=== PATIENT | male | born 1975 | race Caucasian/White ===

== ENCOUNTER 2016-11-04 21:11 | Inpatient (IN) | payer OTHER ==
[~2016-11-04] VITALS: Ht 165.1 cm; Wt 78.5 kg
[2016-11-04] MEDS ORDERED: SOD CHLORIDE 0.9% 500 ML IV STA (22:13)
[2016-11-04 22:28] LABS: ADD SCAN DIFF NO
[2016-11-04 22:30] LABS: BASOPHILS % 0.2 % (0.0-2.0); EOSINOPHILS % 0.4 % (0.0-7.0); HEMATOCRIT 50.9 % (42.0-52.0); HEMOGLOBIN 16.1 g/dl (14.0-18.0); LYMPHOCYTES # 2.5 10^3/ul (0.8-2.9); LYMPHOCYTES % 29.8 % (15.0-51.0); MEAN CORPUSCULAR HGB CONC 31.6 g/dl (32.0-37.0); MEAN PLATELET VOLUME 10.5 fl (7.4-10.4); MONOCYTE # 0.7 10^3/ul (0.3-0.9); MONOCYTES % 8.2 % (0.0-11.0); NEUTROPHIL # 5.1 10^3/ul (1.6-7.5); NEUTROPHILS % 61.3 % (39.0-77.0); PLATELET COUNT 229 10^3/UL (140-415); RED BLOOD COUNT 6.44 10^6/ul (4.70-6.10); RED CELL DISTRIBUTION WIDTH 13.6 % (11.5-14.5); WHITE BLOOD COUNT 8.3 10^3/ul (4.8-10.8)
[2016-11-04 22:57] LABS: INR 0.94; PROTIME 12.6 Sec (12.2-14.2)
[2016-11-04 22:58] LABS: ALANINE AMINOTRANSFERASE 43 IU/L (13-69); ALBUMIN 5.2 g/dl (3.3-4.9); ALBUMIN/GLOBULIN RATIO 1.62; ALKALINE PHOSPHATASE 86 IU/L (42-121); ANION GAP 13 (8-16); ASPARTATE AMINO TRANSFERASE 35 IU/L (15-46); BILIRUBIN,INDIRECT 0.3 mg/dl (0-1.1); BILIRUBIN,TOTAL 0.3 mg/dl (0.2-1.3); BLOOD UREA NITROGEN 17 mg/dl (7-20); CALCIUM 9.2 mg/dl (8.4-10.2); CARBON DIOXIDE 29 mmol/L (21-31); CHLORIDE 103 mmol/L (97-110); CREATININE 0.88 mg/dl (0.61-1.24); GLUCOSE 94 mg/dl (70-220); PARTIAL THROMBOPLASTIN TIME 27.7 Sec (25.0-35.0); POTASSIUM 3.3 mmol/L (3.5-5.1); SODIUM 142 mmol/L (135-144); TOTAL PROTEIN 8.4 g/dl (6.1-8.1)
[2016-11-04 23:14] LABS: B-TYPE NATRIURETIC PEPTIDE < 11 PG/ML (0-125); TROPONIN-I < 0.012 ng/ml (0.00-0.12)
--- NOTE | 2016-11-04 23:19 | RADRPT ---
PROCEDURE: Chest x-ray CLINICAL INDICATION: Chest pain TECHNIQUE: Chest single view COMPARISON: None FINDINGS: The heart is normal in size. The pulmonary vessels are normal in caliber. The lungs are clear. Th e costophrenic angles are sharp. The visualized bony thorax is unremarkable. IMPRESSION: No acute cardiopulmonary disease. RPTAT: HH .Junior Pineda MD, Date Time Electronically viewed and signed by .Junior Pineda MD, MD on 11/04/2016 23:19 .W/
[2016-11-05] VITALS (13 sets, daily range): BP systolic 111–140; BP diastolic 68–84; PULSE 52–71; RESP 17–20; TEMP 96.9; Ht 165.1 cm; Wt 78.5 kg
--- NOTE | 2016-11-05 00:33 | ERA ---
ER Documentation Chief Complaint Date/Time DATE: 11/05/16 TIME: 00:32 Chief Complaint INTERMITTENT CP RADIATING TO LT ARM THAT STARTED SUDDENLY 2 HRS AGO. HPI This is a very pleasant 41-year-old male comes in complaining of intermittent moderate chest pain rating to left, started 2 hours ago. Pain is mild to moderate intensity and pressure-like with no exacerbating limiting factors radiates to the left arm. No shortness of breath. No diaphoresis. No other current complaints. Patient with no documented cardiac history. No family history. ROS All systems reviewed and are negative except as per history of present illness. Allergies Allergies: Coded Allergies: No Known Allergy (Unverified , 11/04/16) PMhx/Soc Medical and Surgical Hx: pt denies Medical Hx, pt denies Surgical Hx Hx Alcohol Use: No Hx Substance Use: No Hx Tobacco Use: No Smoking Status: Never smoker Physical Exam Vitals Vital Signs Date Time Temp Pulse Resp B/P Pulse Ox O2 Delivery O2 Flow Rate FiO2 11/04/16 23:00 74 12 127/86 97 Room Air 11/04/16 21:55 96.9 93 18 146/105 98 Room Air 11/04/16 21:13 96.9 102 18 168/103 97 Physical Exam Const: [] Head: Atraumatic Eyes: Normal Conjunctiva ENT: Normal External Ears, Nose and Mouth. Neck: Full range of motion..~ No meningismus. Resp: Clear to auscultation bilaterally Cardio: Regular rate and rhythm, no murmurs Abd: Soft, non tender, non distended. Normal bowel sounds Skin: No petechiae or rashes Back: No midline or flank tenderness Ext: No cyanosis, or edema Neur: Awake and alert Psych: Normal Mood and Affect Result Diagram: 11/04/16219911/04/162199 Results 24 hrs Laboratory Tests Test 11/04/16 22:00 White Blood Count 8.310^3/ul Red Blood Count 6.4410^6/ul Hemoglobin 16.1g/dl Hematocrit 50.9% Mean Corpuscular Volume 79.0fl Mean Corpuscular Hemoglobin 25.0pg Mean Corpuscular Hemoglobin Concent 31.6g/dl Red Cell Distribution Width 13.6% Platelet Count 30446^3/UL Mean Platelet Volume 10.5fl Neutrophils % 61.3% Lymphocytes % 29.8% Monocytes % 8.2% Eosinophils % 0.4% Basophils % 0.2% Nucleated Red Blood Cells % 0.0/100WBC Neutrophils # 5.110^3/ul Lymphocytes # 2.510^3/ul Monocytes # 0.710^3/ul Eosinophils # 0.010^3/ul Basophils # 0.010^3/ul Nucleated Red Blood Cells # 0.010^3/ul Prothrombin Time 12.6Sec Prothrombin Time Ratio 1.0 INR International Normalized Ratio 0.94 Activated Partial Thromboplast Time 27.7Sec Sodium Level 142mmol/L Potassium Level 3.3mmol/L Chloride Level 103mmol/L Carbon Dioxide Level 29mmol/L Anion Gap 13 Blood Urea Nitrogen 17mg/dl Creatinine 0.88mg/dl Glucose Level 94mg/dl Calcium Level 9.2mg/dl Total Bilirubin 0.3mg/dl Direct Bilirubin 0.00mg/dl Indirect Bilirubin 0.3mg/dl Aspartate Amino Transf (AST/SGOT) 35IU/L Alanine Aminotransferase (ALT/SGPT) 43IU/L Alkaline Phosphatase 86IU/L Troponin I < 0.012ng/ml B-Type Natriuretic Peptide < 11PG/ML Total Protein 8.4g/dl Albumin 5.2g/dl Globulin 3.20g/dl Albumin/Globulin Ratio 1.62 Current Medications Medications (Trade) Dose Ordered Sig/Niraj Route PRN Reason Start Time Stop Time Status Last Admin Dose Admin Sodium Chloride (NS) 500 ml @ 500 mls/hr Q1H STAT IV 11/04/16 22:13 11/04/16 23:12 DC 11/04/16 22:58 Procedures/MDM EKG: Rate/Rhythm: Normal Sinus Rhythm QRS, ST, T-waves: No changes consistent w/ acute ischemia Impression: No evidence of ischemia or arrhythmia Chest X-ray 1V Interpreted by me: Soft Tissue: No acute abnormalities Bones: No acute abnormalities Mediastinum/Cardiac Silhouette/Lungs: No acute abnormalities Patient's symptoms are concerning for cardiac cause will require inpatient workup and continuous monitoring. Further w/u for ischemia, arrhythmia, PE or dissection will be deferred to the inpatient team. Accepting Care Team: Current data and ongoing care discussed. Time: 12:30 AM Primary Provider: Ambrosio Consulting: [[email or web address]] Outstanding Data: none Departure Diagnosis: Primary Impression: Chest pain Qualified Code: I20.0 - Unstable angina pectoris Condition: Serious LADAN STEVENS Nov 05, 2016 00:33
[2016-11-05] MEDS ORDERED: morphine 2 MG INJ IV PRN (03:30)
[2016-11-05] MEDS ORDERED: ACETAMINOPHEN 325 MG TAB PO PRN (03:30)
[2016-11-05] MEDS: ASPIRIN 325 MG TAB PO SCH (08:28)
[2016-11-05] MEDS: METOPROLOL 25 MG TAB PO SCH ×2 (08:29→21:35)
[2016-11-05 08:30] LABS: CHOL/HDL RATIO 4.3 RATIO; CHOLESTEROL 196 mg/dl (100-200); HDL CHOLESTEROL 45 mg/dl (27-67); TRIGLYCERIDES 76 mg/dl (0-149)
[2016-11-05 08:44] LABS: TROPONIN-I < 0.012 ng/ml (0.00-0.12)
[2016-11-05] MEDS ORDERED: POTASSIUM CHLORIDE 20 MEQ POWDER FOR ORAL SOLN PO ONE (13:00)
--- NOTE | 2016-11-05 13:50 | HP ---
DATE OF ADMISSION: 11/05/2016 HISTORY OF PRESENT ILLNESS: The patient is a 41-year-old gentleman originally from [place]. He denie s any prior medical and surgical history. The patient works in construction. The patient stated th at she started to experience intermittent chest pain during the night and in the morning for the las t 6 months. The pain usually goes away by itself. The patient stated that he experienced pressure- like symptoms with no exacerbating or relieving factors last night, which started suddenly and there was radiation to the left arm and patient presented to the emergency room. The patient denies any shortness of breath, denies fever, chills, denies nausea, vomiting. In the emergency room, the gio ent's troponin was negative. The patient underwent a chest x-ray which does not reveal any acute ca rdiopulmonary disease. Patient was getting morphine, 325 mg of aspirin, metoprolol and admitted for further evaluation and management on telemetry floor. Patient also noted to have blood pressure 1 68/103 on admission which is currently stable. PAST MEDICAL HISTORY: The patient denies having any past medical history. PAST SURGICAL HISTORY: Patient denies any surgeries in the past. SOCIAL HISTORY: The patient works in construction, patient denies any tobacco use, denies any illic it drug use, denies any alcohol use. FAMILY HISTORY: Patient's father of heart attack at the age of 71. The patient's mother with a history of diabetes. ALLERGIES: NO KNOWN ALLERGIES. HOME MEDICATIONS: No active scripts. REVIEW OF SYSTEMS: A 12-point review of systems is negative unless mentioned in the HPI. PHYSICAL ASSESSMENT: GENERAL: Well-developed, well-nourished male who currently is awake, alert, in no acute distress. VITAL SIGNS: Temperature 97.8, pulse 63, blood pressure 119/68, respiratory rate 18, oxygen saturat ion 97% on room air. HEENT: Head is atraumatic, normocephalic. Pupils equal, round, reactive to light and accommodation . Oral mucosa is pink and moist. NECK: Supple, no cervical lymphadenopathy, no thyromegaly. CHEST: Lungs clear bilaterally. There is no rhonchi, wheezes, rales noted. CARDIOVASCULAR: Normal S1 and S2. No murmurs, gallops, clicks, rubs noted. ABDOMEN: Flat, soft, nondistended, nontender. Bowel sounds present. There is No guarding, no rebo und tenderness. EXTREMITIES: No edema, clubbing, cyanosis. Pulses equal bilaterally 2+. SKIN: No rashes or petechiae noted. NEUROLOGIC: Patient is awake, alert, oriented x4 with no focal deficits noted. LABORATORY DATA: On admission, CBC: White blood cells 8.3, hemoglobin 16.1, hematocrit 50.9, plate lets 229. Chemistry: Sodium 142, potassium 3.3, chloride 103, carbon dioxide 29, anion gap 15, ___ __ 0.88, glucose 94, AST 35. ASSESSMENT AND PLAN: 1. Chest pain. I will rule out acute coronary syndrome. We will obtain cardiac enzymes q.8.h. aparna es 3. We will obtain a 2D echo to evaluate ejection fraction. Will see patient in cardiology consu ltation. 2. Patient most likely has primary hypertension. Continue metoprolol. 3. A 12-lead EKG with normal sinus rhythm with no changes consistent with ischemia per ER notes. 4. Will obtain a TSH and lipid panel. 5. The patient has mild hypokalemia will replace potassium. BMP and CBC tomorrow. Continue patien t on aspirin and morphine p.r.n. for pain. Further recommendations based on clinical course. Plan of care discussed with Dr. Lares. Dictated By: AIXA CALVILLO SERVICE CASHIER for TAMI LARES MD SR/NTS Conf#: [id number] DID#: [id number]
[2016-11-05] MEDS ORDERED: NITROGLYCERIN (SL) 0.4 MG TAB SL PRN (20:00)
--- NOTE | 2016-11-05 20:04 | RADRPT ---
Echocardiogram Report Patient Name: ANDREW JON Gender: Male Date: 1975 Study Date: 05-Nov-2016 Social Service Manager: Miriam Arceo [facility] Location: 5552 Ref. Physician: TAMI MARQUES Quality: Good Procedures: Transthoracic echocardiogram with complete 2D, M-Mode, and doppler examination. Indications: Chest Pain. 2D/M Mode Doppler Measurement Value Normal Ranges Measurement Value Normal Ranges LVIDd 2D 4.3 3.5 - 5.6 cm AV Peak Keshav 1.4 m/sec LVIDs 2D 2.9 2.1 - 4.1 cm AV Peak PG 8.0 mmHg FS 2D 33.4 % LVOT Peak Kesahv 1.2 m/sec LVPWd 2D 0.9 0.6 - 1.1 cm LVOT Peak PG 6.0 mmHg IVSd 2D 0.9 0.6 - 1.1 cm MV E Peak Keshav 0.6 m/sec IVS/LVPW 2D 1.0 MV A Peak Keshav 0.5 m/sec AoR Diam 2D 3.0 2.0 - 3.7 cm MV E/A 1.3 LA/Ao 2D 1 0 - 1 MV Decel Time 218 msec EDV 2D 80.1 cm3 MV E/A 1.3 ESV 2D 23.6 cm3 TR Peak Keshav 2.3 m/sec LA Dimen 2D 2.7 2.3 - 4.0 cm TR Peak PG 21.0 mmHg RVSP 24.0 mmHg Findings Left Ventricle: Lower limits of normal systolic function. Normal left ventricular cavity size. Normal left ventricular wall thickness. Ejection fraction is visually estimated at 5055 %. Tissue Doppler/Mitral Doppler indices are within normal limits. Right Ventricle: Normal right ventricular size. Normal right ventricular systolic function. Left Atrium: The left atrium is normal in size. Right Atrium: The right atrium is normal in size. Mitral Valve: Mitral valve leaflets appear mildly thickened. Mild mitral annular calcification. Trace mitral regurgitation. Aortic Valve: Normal appearance of the aortic valve. No significant aortic stenosis or insufficiency. Tricuspid Valve: Normal appearance of the tricuspid valve. Estimated peak PA systolic pressure 24 mmHg. There is trace tricuspid regurgitation. Pulmonic Valve: Pulmonic valve not well visualized. Pericardium: Normal pericardium with no significant pericardial effusion. Aorta: Normal aortic root. IVC: Normal size and normal respiratory collapse consistent with normal right atrial pressure. Conclusions 1.Lower limits of normal systolic function. Normal left ventricular cavity size. Normal left ventricular wall thickness. Ejection fraction is visually estimated at 50-55 %. Tissue Doppler/Mitral Doppler indices are within normal limits. 2.Mitral valve leaflets appear mildly thickened. Mild mitral annular calcification. Trace mitral regurgitation. 3.Normal appearance of the tricuspid valve. Estimated peak PA systolic pressure 24 mmHg. There is trace tricuspid regurgitation. Electronically Signed By: Gio Palumbo 05-Nov-2016 20:03:34 -0700 Patient Name: ANDREW JON Study Date: 05-Nov-2016 [id number]
--- NOTE | 2016-11-05 20:31 | CONS ---
DATE OF ADMISSION: 11/05/2016 DATE OF CONSULTATION: 11/05/2016 REASON FOR CONSULTATION: Chest pain, assess for acute coronary syndrome. REQUESTING PHYSICIAN: Tami Marques MD HISTORY OF PRESENT ILLNESS: Mr. Lowe is a 41-year-old male without significant past medical histo ry who initially presented with complaints of substernal chest pain of onset on the day of admission and, prior to that, some months prior. The patient states he had chest pain described as a stabbin g sensation on the left side of his chest with radiation to his left arm and then additionally as a pressure-like component thereafter. Additionally, the pain also radiates to the patient's left leg. The patient states the chest pain comes on at rest, not necessarily related to exertional activiti es. Upon arrival in the emergency department, temperature 96.9, blood pressure markedly elevated at 168/103, pulse 102, respiration 18, saturating 97%. The patient's labs revealed a white count of 8 .3, hemoglobin 6.1, platelet count 229. Sodium 142, potassium 3.3, creatinine 0.88, BUN 17. Tropon in negative. BNP less 11. INR 0.94. The patient underwent a chest x-ray revealing no acute cardio pulmonary abnormalities. The patient's electrocardiogram revealed normal sinus rhythm with a rate o f 89, normal axis, normal intervals, nonspecific ST-T abnormalities. The patient was subsequently a dmitted to the floor and, since admit to floor, continues to complain of chest pain. The patient tomas s had a total of 3 negative troponins, ruling him out for acute myocardial infarction. PAST MEDICAL HISTORY: As above in HPI. MEDICATIONS CURRENTLY IN HOSPITAL: 1. Lipitor 10 mg at bedtime. 2. Metoprolol 25 mg p.o. b.i.d. 3. Aspirin 325 mg daily. 4. Tylenol p.r.n. 5. Morphine p.r.n. ALLERGIES: NO KNOWN DRUG ALLERGIES. SOCIAL HISTORY: No tobacco, ETOH, or illicit drug use. FAMILY HISTORY: Negative for sudden cardiac or early CAD. REVIEW OF SYSTEMS: As above in HPI. CONSTITUTIONAL: No fevers, chills. PULMONARY: No current shortness of breath. CARDIOVASCULAR: Positive chest pain. GASTROINTESTINAL: No vomiting. GENITOURINARY: No hematuria. MUSCULOSKELETAL: Degenerative joint disease. PSYCHIATRIC: The patient denies depression. NEUROLOGIC: No documented history of CVA. PHYSICAL EXAMINATION: VITAL SIGNS: Temperature 98.1, blood pressure 120/73, pulse 58, respirations 17, saturating 98%. GENERAL: The patient is alert, awake, complaining of intermittent chest pain. NECK: JVP approximately 8 cm of water. CHEST: Fair air movement throughout. HEART: Regular rate and rhythm. Normal S1, S2. I/ systolic murmur, nondisplaced PMI. ABDOMEN: Positive bowel sounds, soft. EXTREMITIES: No edema, 1+ pulses bilaterally posterior tibial. LABORATORIES: As above in HPI. Since admit patient had a total of 3 negative troponins, ruling him out for acute myocardial infarction. IMAGING STUDIES: As above in HPI. No further imaging studies for my review at this time. ELECTROCARDIOGRAM: As above in HPI with repeat EKGs revealing sinus bradycardia, rate of 57, normal axis, normal intervals with nonspecific ST-T abnormalities. IMPRESSION: 1. Chest pain, assess for acute coronary syndrome with some atypical features, but ongoing symptoms of chest pain. 2. Abnormal electrocardiogram, assess for acute coronary syndrome. 3. Bradycardia, borderline, likely secondary to beta denisse. RECOMMENDATIONS: 1. At this time, will maintain patient on telemetry monitoring to follow rhythm and rate control cl osely. 2. Continue the patient's aspirin for prophylaxis against cardiovascular events. 3. Continue the patient's current statin at this time. 4. Continue the patient's low dose beta denisse as tolerated. 5. Will give patient sublingual nitroglycerin to assess the patient's chest pain responsiveness and , as patient continues to complain of chest pain, we will consider stress testing this patient to ru le out the possibility of ischemia lending to symptoms of chest pain and subsequent admit to the [facility]. Thank you for allowing me to take part in the care of this patient. I will continue to follow along very closely with you. Further recommendations will be made as the patient progresses through his inpatient hospital clinical course. Dictated By: CARMEN FRANKLIN/KATIA Conf#: [id number] DID#: [id number] CC: TAMI MARQUES MD;*EndCC*
[2016-11-05] MEDS: ATORVASTATIN 10 MG TAB PO SCH (21:35)
[2016-11-06] VITALS (12 sets, daily range): BP systolic 107–131; BP diastolic 64–82; PULSE 50–75; RESP 16–20
[2016-11-06 08:25] LABS: ADD SCAN DIFF NO
[2016-11-06 08:28] LABS: BASOPHILS % 0.3 % (0.0-2.0); EOSINOPHILS # 0.1 10^3/ul (0.0-0.5); EOSINOPHILS % 0.8 % (0.0-7.0); HEMOGLOBIN 16.4 g/dl (14.0-18.0); LYMPHOCYTES # 2.5 10^3/ul (0.8-2.9); LYMPHOCYTES % 35.7 % (15.0-51.0); MEAN CORPUSCULAR HEMOGLOBIN 25.4 pg (29.0-33.0); MEAN CORPUSCULAR HGB CONC 31.5 g/dl (32.0-37.0); MEAN CORPUSCULAR VOLUME 80.5 fl (82.0-101.0); MEAN PLATELET VOLUME 10.4 fl (7.4-10.4); MONOCYTE # 0.5 10^3/ul (0.3-0.9); MONOCYTES % 7.6 % (0.0-11.0); NEUTROPHIL # 3.9 10^3/ul (1.6-7.5); NEUTROPHILS % 55.5 % (39.0-77.0); PLATELET COUNT 257 10^3/UL (140-415); RED BLOOD COUNT 6.46 10^6/ul (4.70-6.10); RED CELL DISTRIBUTION WIDTH 13.2 % (11.5-14.5); WHITE BLOOD COUNT 7.1 10^3/ul (4.8-10.8)
--- NOTE | 2016-11-06 09:26 | CONS ---
Date/Time of Note Date/Time of Note DATE: 11/06/16 TIME: 09:25 Assessment/Plan Assessment/Plan Additional Assessment/Plan 1. Chest pain, assess for acute coronary syndrome with some atypical features, but ongoing symptoms of chest pain- STRESS TEST TODAY 2. Abnormal electrocardiogram, assess for acute coronary syndrome- R/o GA. 3. Bradycardia, borderline, likely secondary to beta denisse - H/R controlled 4. Anxiety - might be contributing ? Consultation Date/Type/Reason Admit Date/Time Nov 05, 2016 at 00:25 Initial Consult Date 24 HR Interval Summary Free Text/Dictation NO chest pain now - STRESS TEST today ROS: No fever, no chills, no nausea, no vomiting, no diarrhea/constipation No recent weight changes No chest pain, no PND, no orthopnea No dizziness, blurred vision No thirst, no heat or cold intolerance Exam/Review of Systems Vital Signs Vitals Vital Signs Date Time Temp Pulse Resp B/P Pulse Ox O2 Delivery O2 Flow Rate FiO2 11/06/16 08:59 59 11/06/16 07:39 97.2 20 119/82 99 11/05/16 01:41 Room Air Intake and Output 11/05/16 11/05/16 11/06/16 15:00 23:00 07:00 Intake Total 1000 ml 800 ml Output Total 3 ml Balance 997 ml 800 ml Exam General: WN/WD/NAD, AOx 3 HEENT: Unicetric/atraumatic/EOMI (follows commands) NECK: JVD elevated, no thyromegaly Lymph: no lymphadenopathy HEART: regular with no S3, II/ systolic murmur at apex LUNGS: Coarse sounds ABD: soft, NT, ND, +BS : Intact Neuro: non focal SKIN: chronic changes EXT: trace edema Results Result Diagram: 11/06/16 0655 11/04/16 2200 Results 24 hrs Laboratory Tests Test 11/05/16 14:46 11/06/16 06:55 Troponin I < 0.012 < 0.012 White Blood Count 7.1 Red Blood Count 6.46 H Hemoglobin 16.4 Hematocrit 52.0 Mean Corpuscular Volume 80.5 L Mean Corpuscular Hemoglobin 25.4 L Mean Corpuscular Hemoglobin Concent 31.5 L Red Cell Distribution Width 13.2 Platelet Count 257 Mean Platelet Volume 10.4 Neutrophils % 55.5 Lymphocytes % 35.7 Monocytes % 7.6 Eosinophils % 0.8 Basophils % 0.3 Nucleated Red Blood Cells % 0.0 Neutrophils # 3.9 Lymphocytes # 2.5 Monocytes # 0.5 Eosinophils # 0.1 Basophils # 0.0 Nucleated Red Blood Cells # 0.0 Medications Medications Current Medications Metoprolol Tartrate (Lopressor) 25 mg BID PO Last administered on 11/05/16 21: 35; Admin Dose 25 MG; Start 11/05/16 at 09:00 Acetaminophen (Tylenol Tab) 650 mg Q4H PRN PO PAIN AND OR ELEVATED TEMP; Start 11/05/16 at 03:30 Morphine Sulfate (morphine) 2 mg Q4H PRN IV PAIN; Start 11/05/16 at 03:30 Aspirin (Aspirin) 325 mg DAILY PO Last administered on 11/05/16 08:28; Admin Dose 325 MG; Start 11/05/16 at 09:00 Atorvastatin Calcium (Lipitor) 10 mg HS PO Last administered on 11/05/16 21:35 ; Admin Dose 10 MG; Start 11/05/16 at 21:00 Nitroglycerin (Nitroglycerin (Sl Tab) 0.4 Mg) 1 tab Q5M PRN SL ANGINA; Start at 20:00 GOOD SOTO MD Nov 06, 2016 09:26
[2016-11-06 09:27] LABS: CALCIUM 9.5 mg/dl (8.4-10.2); CREATININE 0.88 mg/dl (0.61-1.24); POTASSIUM 4.9 mmol/L (3.5-5.1)
[2016-11-06] MEDS ORDERED: REGADENOSON 0.4 MG/5 ML SYG ONE (09:56)
[2016-11-06] MEDS: ASPIRIN 325 MG TAB PO SCH (12:53)
[2016-11-06] MEDS: METOPROLOL 25 MG TAB PO SCH ×2 (12:54→21:34)
--- NOTE | 2016-11-06 12:56 | RADRPT ---
PROCEDURE: Lexiscan myocardial perfusion study CLINICAL INDICATION: 41 -year-old patient complaining of chest pain. TECHNIQUE: Lexiscan 0.4 mg intravenously separate acquisition gated myocardial perfusion SPECT usi ng Tc 99m Myoview 29.1 mCi intravenously at stress and Tc-99m Myoview, 9.9 mCi intravenously at rest was performed using the rest/stress sequence. Poststress Myoview SPECT images were obtained in the supine position. COMPARISON: No prior studies. FINDINGS: Perfusion images reveal a small size mild in degree partially reversible perfusion abnormality in th e mid anterior wall. Lexiscan post stress gated SPECT images demonstrate no wall motion abnormalities. IMPRESSION: 1. The type and distribution of the scintigraphic abnormalities are most consistent with a small pa rtially reversible perfusion defect in the mid anterior wall. 2. No wall motion abnormalities. 3. The left ventricle ejection fraction at stress is 53%. A call report was made to Dr. Styles at 12:54 p.m. on November 06, 2016. RPTAT: HH .Salma Dueñas MD, Date Time Electronically viewed and signed by .Salma Dueñas MD, on 11/06/2016 12:56 .L/
--- NOTE | 2016-11-06 13:10 | ECORPT ---
DATE OF SERVICE: LEXISCAN CARDIOLITE STRESS TEST REFERRING PHYSICIAN: Tera Lares MD REASON FOR STRESS TEST: Chest pain. DESCRIPTION OF TEST: The patient brought to the heart station in fasting condition and had successf ul Lexiscan injection. The patient tolerated the procedure well. The imaging report is dictated se bhavesh. Dictated By: GOOD SOTO MD ML/NTS Conf#: [id number] DID#: [id number]
--- NOTE | 2016-11-06 15:17 | PN ---
Date/Time of Note Date/Time of Note DATE: 11/06/16 TIME: 15:15 Assessment/Plan VTE Prophylaxis VTE Prophylaxis Intervention: SCD's Lines/Catheters IV [facility]from [facility] Saline Lock Assessment/Plan Chief Complaint/Hosp Course Patient denies shortness of breath denies chest pain, status post stress test today. ASSESSMENT AND PLAN: - Chest pain. Rule out acute coronary syndrome. Patient is status post stress test. Continue to follow-up cardiology recommendations. Dr. Styles is following and cardiology. Continue telemetry monitoring. Further recommendations based on clinical course. Plan of care discussed with Dr. Laers. Problems: Exam/Review of Systems Vital Signs Vitals Vital Signs Date Time Temp Pulse Resp B/P Pulse Ox O2 Delivery O2 Flow Rate FiO2 11/06/16 12:42 59 11/06/16 12:10 98.2 18 112/68 98 11/05/16 01:41 Room Air Intake and Output 11/05/16 11/05/16 11/06/16 15:00 23:00 07:00 Intake Total 1000 ml 800 ml Output Total 3 ml Balance 997 ml 800 ml Exam Constitutional: alert, oriented Head: normocephalic Neck: supple Respiratory: clear to auscultation Cardiovascular: nl pulses Gastrointestinal: non-tender, soft Extremities: normal pulses Results Result Diagram: 11/06/16 0655 11/06/16 0655 Results 24 hrs Laboratory Tests Test 11/06/16 06:55 White Blood Count 7.1 Red Blood Count 6.46 H Hemoglobin 16.4 Hematocrit 52.0 Mean Corpuscular Volume 80.5 L Mean Corpuscular Hemoglobin 25.4 L Mean Corpuscular Hemoglobin Concent 31.5 L Red Cell Distribution Width 13.2 Platelet Count 257 Mean Platelet Volume 10.4 Neutrophils % 55.5 Lymphocytes % 35.7 Monocytes % 7.6 Eosinophils % 0.8 Basophils % 0.3 Nucleated Red Blood Cells % 0.0 Neutrophils # 3.9 Lymphocytes # 2.5 Monocytes # 0.5 Eosinophils # 0.1 Basophils # 0.0 Nucleated Red Blood Cells # 0.0 Sodium Level 142 Potassium Level 4.9 Chloride Level 103 Carbon Dioxide Level 28 Anion Gap 16 Blood Urea Nitrogen 17 Creatinine 0.88 Glucose Level 80 Calcium Level 9.5 Troponin I < 0.012 Medications Medications Current Medications Metoprolol Tartrate (Lopressor) 25 mg BID PO Last administered on 11/06/16 12: 54; Admin Dose 25 MG; Start 11/05/16 at 09:00 Acetaminophen (Tylenol Tab) 650 mg Q4H PRN PO PAIN AND OR ELEVATED TEMP; Start 11/05/16 at 03:30 Morphine Sulfate (morphine) 2 mg Q4H PRN IV PAIN; Start 11/05/16 at 03:30 Aspirin (Aspirin) 325 mg DAILY PO Last administered on 11/06/16 12:53; Admin Dose 325 MG; Start 11/05/16 at 09:00 Atorvastatin Calcium (Lipitor) 10 mg HS PO Last administered on 11/05/16 21:35 ; Admin Dose 10 MG; Start 11/05/16 at 21:00 Nitroglycerin (Nitroglycerin (Sl Tab) 0.4 Mg) 1 tab Q5M PRN SL ANGINA; Start at 20:00 AIXA CALVILLO Nov 06, 2016 15:17
[2016-11-06] MEDS: ATORVASTATIN 10 MG TAB PO SCH (21:34)
[2016-11-07] VITALS (12 sets, daily range): BP systolic 104–130; BP diastolic 62–81; PULSE 53–109; RESP 16–19
[2016-11-07 08:06] LABS: CALCIUM 9.5 mg/dl (8.4-10.2); CREATININE 0.92 mg/dl (0.61-1.24)
[2016-11-07 08:27] LABS: T3 UPTAKE 32.1 % (23.5-40.5)
[2016-11-07] MEDS: ASPIRIN 325 MG TAB PO SCH (08:59)
[2016-11-07] MEDS: METOPROLOL 25 MG TAB PO SCH ×2 (09:00→21:11)
--- NOTE | 2016-11-07 14:17 | CONS ---
Date/Time of Note Date/Time of Note DATE: 11/07/16 TIME: 14:13 Assessment/Plan Assessment/Plan Chief Complaint/Hosp Course IMp: 1.Chest pain-Negative trop/Lexiscan with ischemia anterior wall 2.abnl ecg 3.bradycardia 4.Hypercholesterolemia Recc: -Tele -Continue BB/statin/asa -LHC tomorrow Problems: Consultation Date/Type/Reason Admit Date/Time Nov 05, 2016 at 00:25 Initial Consult Date 11/05/2016 Type of Consultation: Cardiology Reason for Consultation chest pain Referring Provider: TAMI MARQUES MD Exam/Review of Systems Vital Signs Vitals Vital Signs Date Time Temp Pulse Resp B/P Pulse Ox O2 Delivery O2 Flow Rate FiO2 11/07/16 12:24 109 11/07/16 11:48 98.2 17 127/78 98 11/05/16 01:41 Room Air Intake and Output 11/06/16 11/06/16 11/07/16 15:00 23:00 07:00 Intake Total 500 ml 750 ml Balance 500 ml 750 ml Exam Review of Systems: CONSTITUTIONAL: No fevers, chills. PULMONARY: No sob CARDIOVASCULAR: No chest pain/palpitations GASTROINTESTINAL: No nausea/vomiting. GENITOURINARY: No hematuria/dysuria. MUSCULOSKELETAL: No myagias/arthalgias. PSYCHIATRIC: The patient denies depression. NEUROLOGIC: No weakness Constitutional: alert Psych: no complaints Head: normocephalic ENMT: mucosa pink and moist Neck: supple Respiratory: clear to auscultation Cardiovascular: regular rate and rhythm Gastrointestinal: non-tender, soft Musculoskeletal: muscle tone Extremities: edema (none), normal pulses Neurological: other (No focal deficits) Results Result Diagram: 11/06/16 0655 11/07/16 0655 Results 24 hrs Laboratory Tests Test 11/07/16 06:42 11/07/16 06:55 Free Thyroxine Index 2.76 Thyroxine (T4) 8.6 Triiodothyronine (T3) Uptake 32.1 Sodium Level 143 Potassium Level 4.0 Chloride Level 104 Carbon Dioxide Level 30 Anion Gap 13 Blood Urea Nitrogen 17 Creatinine 0.92 Glucose Level 84 Calcium Level 9.5 Medications Medications Current Medications Metoprolol Tartrate (Lopressor) 25 mg BID PO Last administered on 11/07/16t 09: 00; Admin Dose 25 MG; Start 11/05/16 at 09:00 Acetaminophen (Tylenol Tab) 650 mg Q4H PRN PO PAIN AND OR ELEVATED TEMP; Start 11/05/16 at 03:30 Morphine Sulfate (morphine) 2 mg Q4H PRN IV PAIN; Start 11/05/16 at 03:30 Aspirin (Aspirin) 325 mg DAILY PO Last administered on 11/07/16 08:59; Admin Dose 325 MG; Start 11/05/16 at 09:00 Atorvastatin Calcium (Lipitor) 10 mg HS PO Last administered on 11/06/16 21:34 ; Admin Dose 10 MG; Start 11/05/16 at 21:00 Nitroglycerin (Nitroglycerin (Sl Tab) 0.4 Mg) 1 tab Q5M PRN SL ANGINA; Start at 20:00 CARMEN PINEDO Nov 07, 2016 14:17
[2016-11-07] MEDS ORDERED: DIPHENHYDRAMINE 50 MG CAP PO ONE (14:30)
[2016-11-07] MEDS ORDERED: DIAZEPAM 5 MG TAB PO ONE (14:30)
--- NOTE | 2016-11-07 17:48 | RADRPT ---
Vent Rate: 57 bpm RR Interval: 0 msec [place] Interval: 156 msec QRS Duration: 92 msec QT Interval: 408 msec QTC Interval: 397 msec P-R-T [place]: 33 - 59 - 42 degrees Sinus bradycardia Otherwise normal ECG Electronically Signed By: Josue Barrett [id number]
--- NOTE | 2016-11-07 17:50 | RADRPT ---
Vent Rate: 53 bpm RR Interval: 0 msec [place] Interval: 160 msec QRS Duration: 90 msec QT Interval: 420 msec QTC Interval: 394 msec P-R-T [place]: 38 - 67 - [address] elevation, probably due to early repolarization Borderline ECG Electronically Signed By: Josue Barrett [id number]
--- NOTE | 2016-11-07 18:56 | PN ---
Date/Time of Note Date/Time of Note DATE: 11/07/16 TIME: 18:53 Assessment/Plan VTE Prophylaxis VTE Prophylaxis Intervention: SCD's Lines/Catheters IV [facility]from [facility] Saline Lock Assessment/Plan Chief Complaint/Hosp Course She remains hemodynamically stable denies shortness of breath with minimal intermittent chest pain ASSESSMENT AND PLAN: - Chest pain. Troponin is negative 3 Lexiscan is positive for ischemia of the anterior wall. Dr. Palumbo is following and cardiology consultation. Plan for cardiac cath tomorrow. Continue telemetry monitoring. Further recommendations based on clinical course. Plan of care discussed with Dr. Lares. Problems: Exam/Review of Systems Vital Signs Vitals Vital Signs Date Time Temp Pulse Resp B/P Pulse Ox O2 Delivery O2 Flow Rate FiO2 11/07/16 16:17 58 11/07/16 15:47 98.1 19 115/81 98 11/05/16 01:41 Room Air Intake and Output 11/06/16 11/06/16 11/07/16 15:00 23:00 07:00 Intake Total 500 ml 750 ml Balance 500 ml 750 ml Exam Constitutional: alert, oriented Head: normocephalic Neck: supple Respiratory: clear to auscultation Cardiovascular: nl pulses Gastrointestinal: non-tender, soft Extremities: normal pulses Results Result Diagram: 11/06/16 0655 11/07/16 0655 Results 24 hrs Laboratory Tests Test 11/07/16 06:42 11/07/16 06:55 Free Thyroxine Index 2.76 Thyroxine (T4) 8.6 Triiodothyronine (T3) Uptake 32.1 Sodium Level 143 Potassium Level 4.0 Chloride Level 104 Carbon Dioxide Level 30 Anion Gap 13 Blood Urea Nitrogen 17 Creatinine 0.92 Glucose Level 84 Calcium Level 9.5 Medications Medications Current Medications Metoprolol Tartrate (Lopressor) 25 mg BID PO Last administered on 11/07/16 09: 00; Admin Dose 25 MG; Start 11/05/16 at 09:00 Acetaminophen (Tylenol Tab) 650 mg Q4H PRN PO PAIN AND OR ELEVATED TEMP; Start 11/05/16 at 03:30 Morphine Sulfate (morphine) 2 mg Q4H PRN IV PAIN; Start 11/05/16 at 03:30 Aspirin (Aspirin) 325 mg DAILY PO Last administered on 11/07/16 08:59; Admin Dose 325 MG; Start 11/05/16 at 09:00 Atorvastatin Calcium (Lipitor) 10 mg HS PO Last administered on 11/06/16t 21:34 ; Admin Dose 10 MG; Start 11/05/16 at 21:00 Nitroglycerin (Nitroglycerin (Sl Tab) 0.4 Mg) 1 tab Q5M PRN SL ANGINA; Start at 20:00 Diazepam (Valium) 5 mg OC ONCE PO ; Start 11/08/16 at 06:00; Stop 11/08/16 at 06: 01 Diphenhydramine HCl (Benadryl) 50 mg OC ONCE PO ; Start 11/08/16 at 06:00; Stop 11/08/16 at 06:01 AIXA CALVILLO Nov 07, 2016 18:56
[2016-11-07] MEDS: ATORVASTATIN 10 MG TAB PO SCH (21:11)
[2016-11-08] VITALS (18 sets, daily range): BP systolic 93–135; BP diastolic 56–77; PULSE 51–72; RESP 14–20
[2016-11-08] MEDS ORDERED: DIAZEPAM 5 MG TAB PO ONE (06:00)
[2016-11-08] MEDS ORDERED: DIPHENHYDRAMINE 50 MG CAP PO ONE (06:00)
[2016-11-08 07:46] LABS: ADD SCAN DIFF NO
[2016-11-08 07:56] LABS: BASOPHILS % 0.3 % (0.0-2.0); EOSINOPHILS # 0.1 10^3/ul (0.0-0.5); HEMATOCRIT 50.2 % (42.0-52.0); HEMOGLOBIN 15.8 g/dl (14.0-18.0); LYMPHOCYTES # 2.1 10^3/ul (0.8-2.9); LYMPHOCYTES % 33.7 % (15.0-51.0); MEAN CORPUSCULAR HEMOGLOBIN 25.1 pg (29.0-33.0); MEAN CORPUSCULAR HGB CONC 31.5 g/dl (32.0-37.0); MEAN CORPUSCULAR VOLUME 79.8 fl (82.0-101.0); MEAN PLATELET VOLUME 10.5 fl (7.4-10.4); MONOCYTE # 0.5 10^3/ul (0.3-0.9); MONOCYTES % 8.3 % (0.0-11.0); NEUTROPHIL # 3.5 10^3/ul (1.6-7.5); NEUTROPHILS % 56.5 % (39.0-77.0); PLATELET COUNT 225 10^3/UL (140-415); RED BLOOD COUNT 6.29 10^6/ul (4.70-6.10); RED CELL DISTRIBUTION WIDTH 13.1 % (11.5-14.5); WHITE BLOOD COUNT 6.2 10^3/ul (4.8-10.8)
[2016-11-08] MEDS ORDERED: LIDOCAINE 2% JELLY 5 ML ONE (07:57)
[2016-11-08] MEDS ORDERED: VERAPAMIL 5 MG INJ ONE (07:58)
[2016-11-08] MEDS ORDERED: NITROGLYCERIN (IC) 100 MCG/ML INJ ONE (07:58)
[2016-11-08] MEDS ORDERED: LIDOCAINE 1% (MDV) 20 ML INJ ONE (07:58)
[2016-11-08] MEDS ORDERED: HEPARIN 1000 UNITS/ML 10 ML INJ ONE (07:58)
[2016-11-08] MEDS ORDERED: FENTAnyl 50 MCG/ML VIAL ONE (08:09)
[2016-11-08] MEDS ORDERED: MIDAZOLAM 1 MG/ML 2 ML INJ ONE (08:09)
[2016-11-08 08:23] LABS: PROTIME 13.2 Sec (12.2-14.2)
[2016-11-08] MEDS: ASPIRIN 325 MG TAB PO SCH (08:24)
[2016-11-08] MEDS: METOPROLOL 25 MG TAB PO SCH ×2 (08:25→20:58)
[2016-11-08 08:26] LABS: CALCIUM 9.6 mg/dl (8.4-10.2); CREATININE 0.9 mg/dl (0.61-1.24); POTASSIUM 4.4 mmol/L (3.5-5.1)
[2016-11-08] MEDS ORDERED: IODIXANOL LOCM 100 ML BTL ONE (09:44)
--- NOTE | 2016-11-08 09:51 | RADRPT ---
Vent Rate: 54 bpm RR Interval: 0 msec [place] Interval: 164 msec QRS Duration: 100 msec QT Interval: 414 msec QTC Interval: 392 msec P-R-T [place]: 42 - 68 - 54 degrees Sinus bradycardia Otherwise normal ECG No previous tracing available for comparison Electronically Signed By: Glen Delgado [id number]
[2016-11-08] MEDS ORDERED: SOD CHLORIDE 0.9% 1,000 ML IV SCH ×2 (09:56→18:30)
[2016-11-08] MEDS ORDERED: morphine 2 MG INJ IV PRN (10:00)
[2016-11-08] MEDS ORDERED: AL HYDROX/MG HYDROX/SIMETH 30 ML CUP PO PRN (10:00)
[2016-11-08] MEDS ORDERED: ACETAMINOPHEN 325 MG TAB PO PRN (10:00)
[2016-11-08] MEDS ORDERED: ONDANSETRON 4 MG INJ IV PRN (10:00)
--- NOTE | 2016-11-08 10:04 | CONS ---
Date/Time of Note Date/Time of Note DATE: 11/08/16 TIME: 09:58 Assessment/Plan Assessment/Plan Chief Complaint/Hosp Course IMp: 1.Chest pain-Negative trop/Lexiscan with ischemia anterior wall. Now post-op s/ p LHC with no sig obstructive disease 2.abnl ecg 3.bradycardia 4.Hypercholesterolemia Recc: -Tele -Continue BB/statin/asa -Now s/p LHC with no sig obstructive disease. ? microvascular disease? Will start low dose oral nitrates and follow sx. -D/C Planning Problems: Consultation Date/Type/Reason Admit Date/Time Nov 05, 2016 at 00:25 Initial Consult Date 11/05/2016 Type of Consultation: Cardiology Reason for Consultation Chest pain Referring Provider: TAMI MARQUES MD Exam/Review of Systems Vital Signs Vitals Vital Signs Date Time Temp Pulse Resp B/P Pulse Ox O2 Delivery O2 Flow Rate FiO2 11/08/16 08:16 51 11/08/16 08:00 98.0 18 124/77 100 11/05/16 01:41 Room Air Intake and Output 11/07/16 11/07/16 11/08/16 15:00 23:00 07:00 Intake Total 800 ml 800 ml Balance 800 ml 800 ml Exam Review of Systems: CONSTITUTIONAL: No fevers, chills. PULMONARY: No sob CARDIOVASCULAR: Intermittent chest pain GASTROINTESTINAL: No nausea/vomiting. GENITOURINARY: No hematuria/dysuria. MUSCULOSKELETAL: No myagias/arthalgias. PSYCHIATRIC: The patient denies depression. NEUROLOGIC: No weakness Constitutional: alert Psych: no complaints Head: normocephalic ENMT: mucosa pink and moist Neck: jvd (9 cm water), supple Respiratory: diminished breath sounds Cardiovascular: regular rate and rhythm Gastrointestinal: soft Musculoskeletal: muscle tone (normal) Extremities: edema (none) Neurological: other (No focal deficits) Results Result Diagram: 11/08/16 0717 11/08/16 0717 Results 24 hrs Laboratory Tests Test 11/08/16 07:17 White Blood Count 6.2 Red Blood Count 6.29 H Hemoglobin 15.8 Hematocrit 50.2 Mean Corpuscular Volume 79.8 L Mean Corpuscular Hemoglobin 25.1 L Mean Corpuscular Hemoglobin Concent 31.5 L Red Cell Distribution Width 13.1 Platelet Count 225 Mean Platelet Volume 10.5 H Neutrophils % 56.5 Lymphocytes % 33.7 Monocytes % 8.3 Eosinophils % 1.0 Basophils % 0.3 Nucleated Red Blood Cells % 0.0 Neutrophils # 3.5 Lymphocytes # 2.1 Monocytes # 0.5 Eosinophils # 0.1 Basophils # 0.0 Nucleated Red Blood Cells # 0.0 Prothrombin Time 13.2 Prothrombin Time Ratio 1.0 INR International Normalized Ratio 1.00 Sodium Level 141 Potassium Level 4.4 Chloride Level 102 Carbon Dioxide Level 30 Anion Gap 13 Blood Urea Nitrogen 18 Creatinine 0.90 Glucose Level 84 Calcium Level 9.6 Medications Medications Current Medications Metoprolol Tartrate (Lopressor) 25 mg BID PO Last administered on 11/07/16 21: 11; Admin Dose 25 MG; Start 11/05/16 at 09:00 Acetaminophen (Tylenol Tab) 650 mg Q4H PRN PO PAIN AND OR ELEVATED TEMP; Start 11/05/16 at 03:30 Morphine Sulfate (morphine) 2 mg Q4H PRN IV PAIN; Start 11/05/16 at 03:30 Aspirin (Aspirin) 325 mg DAILY PO Last administered on 11/08/16 08:24; Admin Dose 325 MG; Start 11/05/16 at 09:00 Atorvastatin Calcium (Lipitor) 10 mg HS PO Last administered on 11/07/16 21:11 ; Admin Dose 10 MG; Start 11/05/16 at 21:00 Nitroglycerin (Nitroglycerin (Sl Tab) 0.4 Mg) 1 tab Q5M PRN SL ANGINA; Start at 20:00 CARMEN PINEDO Nov 08, 2016 10:04
--- NOTE | 2016-11-08 10:52 | CARRPT ---
DATE OF PROCEDURE: 11/08/2016 TYPE OF PROCEDURE: 1. Left heart catheterization. 2. Coronary angiography. 3. Left ventriculogram. 4. 30 minutes concious sedation ATTENDING PHYSICIAN: Carmen Palumbo MD REFERRING PHYSICIAN: Tami Marques MD INDICATION: Chest pain with positive stress test findings for anterior ischemia , high risk marker for cardiovascular events. TYPE OF ANESTHESIA: Conscious local. BRIEF HISTORY AND HOSPITAL COURSE: Mr. Lowe is a 41-year-old male with history of hypertension, who initially presented with complaints of substernal chest pain. The patient subsequently ruled out for acute myocardial infarction , underwent cardiac stress test revealing positive anterior ischemia. The patient has now been referred for left heart catheterization to assess for the possibility of significant obstructive coronary artery disease lending to symptoms of chest pain and positive stress test findings. DESCRIPTION OF PROCEDURE: After informed consent was obtained, the patient was brought to [facility] cardiac catheterization lab where his right radial area was prepped and draped in the usual fashion. Lidocaine 2% was infiltrated into the right radial area in order to achieve adequate local anesthesia. Using modified Seldinger technique, the radial artery was cannulated and a 6[place]izen [place] arterial sheath was placed. A 6-[place]izen [place] JL3.5 catheter was used to cannulate the left main coronary ostium. With contrast injection, multiple views of the left coronary arterial system were obtained. JL3.5 was removed over a guidewire and a JR4 was used to cannulate the right coronary arterial ostium. With contrast injection, multiple views of the right coronary arterial system were obtained. JR4 was removed over a guidewire and a 6-Citizen [place] pigtail was passed down the ascending aorta. Left ventricular end- diastolic pressure is measured. Using a power injector, 20 mL of contrast was injected opacifying the left ventricle. The pigtail catheter was then pulled back across the aortic valve to assess for significant gradient, which there was not and removed. Subsequently, this completed the procedure. The patient' s catheter was removed. The patient's sheath was removed. TR band was applied. There were no noted complications. FINDINGS: Coronary angiography. Right coronary artery is a nondominant vessel , proximally is a 2.25 mm with an ostial 30% stenosis. The remainder of the right coronary artery is free of significant focal stenoses. The left main is short 4 mm, no significant stenoses. Circumflex proximally 3.5 mm with an ostial 20% stenosis. The remainder of the circumflex is free of significant focal stenoses. There is a proximal branching obtuse marginal 2.5 mm with no significant focal stenoses, and a large left-sided PDA 3 mm with no significant focal stenoses and a 2.5 mm posterolateral branch with an ostial 20% stenosis. The LAD proximally is a 3.5 mm vessel and is free of any significant focal stenoses throughout its entirety, it wraps around the apex. There is a mid branching diagonal 2 mm with no significant focal stenoses. Left ventriculogram revealed left ventricular ejection fraction of 55%. Left ventricular end-diastolic pressure of 19 pre-LV gram, 21 post-LV gram. No significant aortic stenosis by gradient. TOTAL FLUOROSCOPY TIME: 3 minutes. TOTAL CONTRAST: 105 mL. IMPRESSION: 1. Essentially normal coronary arteries with very mild nonobstructive coronary artery disease. 2. Preserved left ventricular systolic function. 3. Mildly elevated left heart filling pressures. 4. No significant aortic stenosis by gradient. 5. 1+ mitral regurgitation. RECOMMENDATIONS: In light of procedure findings at this time would: 1. Maximize medical management. 2. Aggressive risk factor reduction. 3. The patient to be readmitted to telemetry floor for post-catheterization observation and continued management of presenting symptoms with probable discharge later this afternoon. Dictated By: CARMEN FRANKLIN/KATIA Conf#: [id number] DID#: [id number] CC: TAMI MARQUES MD;*EndCC* MTDD
[2016-11-08] MEDS: ISOSORBIDE DINITRATE 10 MG TAB PO SCH ×2 (14:34→20:57)
--- NOTE | 2016-11-08 20:11 | PN ---
Date/Time of Note Date/Time of Note DATE: 11/08/16 TIME: 20:05 Assessment/Plan Lines/Catheters IV Catheter Type (from [facility]): Saline Lock Assessment/Plan Assessment/Plan - Chest pain.- ruled out- Troponin is negative 3 Lexiscan is positive for ischemia of the anterior wall - per Dr Palumbo in cardiology - sp cardiac cath today. c/o right arm pain and headache. - anticipate discharge am Continue telemetry monitoring. - Further recommendations based on clinical course. Plan of care discussed with Dr. Lares. Subjective 24 Hr Interval Summary Free Text/Dictation sp cardiac cath today. c/o right arm pain and headache. denies any chest pain/ shortness of breath, fever, chills. dw staff. Exam/Review of Systems Vital Signs Vitals Vital Signs Date Time Temp Pulse Resp B/P Pulse Ox O2 Delivery O2 Flow Rate FiO2 11/08/16 19:39 98.9 107 15 110/61 91 11/08/16 11:52 Room Air Intake and Output 11/07/16 11/07/16 11/08/16 15:00 23:00 07:00 Intake Total 800 ml 800 ml Balance 800 ml 800 ml Exam Constitutional: alert, oriented, well developed Respiratory: clear to auscultation, normal air movement Cardiovascular: nl pulses, regular rate and rhythm Gastrointestinal: non-tender, soft Extremities: normal pulses Neurological: nl mental status, nl speech Results Result Diagram: 11/08/1617 11/08/16 0717 Results 24 hrs Laboratory Tests Test 11/08/16 07:17 White Blood Count 6.2 Red Blood Count 6.29 H Hemoglobin 15.8 Hematocrit 50.2 Mean Corpuscular Volume 79.8 L Mean Corpuscular Hemoglobin 25.1 L Mean Corpuscular Hemoglobin Concent 31.5 L Red Cell Distribution Width 13.1 Platelet Count 225 Mean Platelet Volume 10.5 H Neutrophils % 56.5 Lymphocytes % 33.7 Monocytes % 8.3 Eosinophils % 1.0 Basophils % 0.3 Nucleated Red Blood Cells % 0.0 Neutrophils # 3.5 Lymphocytes # 2.1 Monocytes # 0.5 Eosinophils # 0.1 Basophils # 0.0 Nucleated Red Blood Cells # 0.0 Prothrombin Time 13.2 Prothrombin Time Ratio 1.0 INR International Normalized Ratio 1.00 Sodium Level 141 Potassium Level 4.4 Chloride Level 102 Carbon Dioxide Level 30 Anion Gap 13 Blood Urea Nitrogen 18 Creatinine 0.90 Glucose Level 84 Calcium Level 9.6 Medications Medications Current Medications Metoprolol Tartrate (Lopressor) 25 mg BID PO Last administered on 11/07/16 21: 11; Admin Dose 25 MG; Start 11/05/16 at 09:00 Acetaminophen (Tylenol Tab) 650 mg Q4H PRN PO PAIN AND OR ELEVATED TEMP; Start 11/05/16 at 03:30 Aspirin (Aspirin) 325 mg DAILY PO Last administered on 11/08/16 08:24; Admin Dose 325 MG; Start 11/05/16 at 09:00 Atorvastatin Calcium (Lipitor) 10 mg HS PO Last administered on 11/07/16 21:11 ; Admin Dose 10 MG; Start 11/05/16 at 21:00 Nitroglycerin (Nitroglycerin (Sl Tab) 0.4 Mg) 1 tab Q5M PRN SL ANGINA; Start at 20:00 Acetaminophen (Tylenol Tab) 650 mg Q4H PRN PO NON-CARDIAC PAIN LEVEL (1-3); Start 11/08/16 at 10:00 Morphine Sulfate (morphine) 2 mg Q2H PRN IV FOR NON CARDIAC PAIN (4-10) Last administered on 11/08/16 14:33; Admin Dose 2 MG; Start 11/08/16 at 10:00 Al Hydrox/Mg Hydrox/Simethicone (Mag-Al Plus) 30 ml Q4H PRN PO GASTROINTESTINAL UPSET; Start 11/08/16 at 10:00 Ondansetron HCl (Zofran Inj) 4 mg Q4H PRN IV NAUSEA AND/OR VOMITING; Start 11/08 at 10:00 Isosorbide Dinitrate 10 mg 10 mg TID PO Last administered on 11/08/16 14:34; Admin Dose 10 MG; Start 11/08/16 at 13:00 Sodium Chloride (NS) 1,000 ml @ 75 mls/hr [id number] IV Last administered on 18:35; Admin Dose 75 MLS/HR; Start 11/08/16 at 18:30; Stop 11/08/16 at 23:30 KAYLA COWAN Nov 08, 2016 20:11
[2016-11-08] MEDS: ATORVASTATIN 10 MG TAB PO SCH (20:58)
[2016-11-09] VITALS (9 sets, daily range): BP systolic 93–115; BP diastolic 53–67; PULSE 58–68; RESP 15–18
[2016-11-09 08:02] LABS: ADD SCAN DIFF NO
[2016-11-09 08:03] LABS: BASOPHILS % 0.3 % (0.0-2.0); EOSINOPHILS # 0.1 10^3/ul (0.0-0.5); EOSINOPHILS % 0.8 % (0.0-7.0); HEMATOCRIT 47.4 % (42.0-52.0); HEMOGLOBIN 15.1 g/dl (14.0-18.0); LYMPHOCYTES # 2.1 10^3/ul (0.8-2.9); LYMPHOCYTES % 29.3 % (15.0-51.0); MEAN CORPUSCULAR HEMOGLOBIN 25.6 pg (29.0-33.0); MEAN CORPUSCULAR HGB CONC 31.9 g/dl (32.0-37.0); MEAN CORPUSCULAR VOLUME 80.3 fl (82.0-101.0); MEAN PLATELET VOLUME 10.7 fl (7.4-10.4); MONOCYTE # 0.6 10^3/ul (0.3-0.9); MONOCYTES % 8.4 % (0.0-11.0); NEUTROPHIL # 4.4 10^3/ul (1.6-7.5); NEUTROPHILS % 60.9 % (39.0-77.0); PLATELET COUNT 205 10^3/UL (140-415); RED CELL DISTRIBUTION WIDTH 13.1 % (11.5-14.5); WHITE BLOOD COUNT 7.2 10^3/ul (4.8-10.8)
[2016-11-09] MEDS: METOPROLOL 25 MG TAB PO SCH (08:36)
[2016-11-09] MEDS: ISOSORBIDE DINITRATE 10 MG TAB PO SCH (08:36)
[2016-11-09] MEDS: ASPIRIN 325 MG TAB PO SCH (08:36)
[2016-11-09 08:39] LABS: CALCIUM 8.9 mg/dl (8.4-10.2); CREATININE 0.91 mg/dl (0.61-1.24); POTASSIUM 4.1 mmol/L (3.5-5.1)
--- NOTE | 2016-11-09 13:07 | CONS ---
Date/Time of Note Date/Time of Note DATE: 11/09/16 TIME: 13:05 Assessment/Plan Assessment/Plan Chief Complaint/Hosp Course IMp: 1.Chest pain-Negative trop/Lexiscan with ischemia anterior wall. Now post-op s/ p LHC 11/08/16 with no sig obstructive disease 2.abnl ecg 3.bradycardia-stable 4.Hypercholesterolemia Recc: -Tele -Continue BB/statin/asa -Now s/p C with no sig obstructive disease. ? microvascular disease? Continue oral nitrates at D/C -D/C Planning with outpatient f/u Problems: Consultation Date/Type/Reason Admit Date/Time Nov 05, 2016 at 00:25 Initial Consult Date 11/05/2016 Type of Consultation: Cardiology Reason for Consultation Chest pain Referring Provider: TAMI MARQUES MD Exam/Review of Systems Vital Signs Vitals Vital Signs Date Time Temp Pulse Resp B/P Pulse Ox O2 Delivery O2 Flow Rate FiO2 11/09/16 12:15 61 11/09/16 11:34 97.9 18 93/53 100 11/08/16 11:52 Room Air Intake and Output 11/08/16 11/08/16 11/09/16 15:00 23:00 07:00 Intake Total 510 ml 720 ml 800 ml Balance 510 ml 720 ml 800 ml Exam Review of Systems: CONSTITUTIONAL: No fevers, chills. PULMONARY: No sob CARDIOVASCULAR: No chest pain/palpitations GASTROINTESTINAL: No nausea/vomiting. GENITOURINARY: No hematuria/dysuria. MUSCULOSKELETAL: No myagias/arthalgias. PSYCHIATRIC: The patient denies depression. NEUROLOGIC: No weakness Constitutional: alert, oriented Psych: no complaints Head: normocephalic ENMT: mucosa pink and moist Neck: jvd (8 cm water), supple Respiratory: clear to auscultation Cardiovascular: regular rate and rhythm Gastrointestinal: non-tender, soft Musculoskeletal: muscle tone (normal) Extremities: edema (none) Neurological: other (No focal deficits) Results Result Diagram: 11/09/16 0721 11/09/16 0721 Results 24 hrs Laboratory Tests Test 11/09/16 07:21 White Blood Count 7.2 Red Blood Count 5.90 Hemoglobin 15.1 Hematocrit 47.4 Mean Corpuscular Volume 80.3 L Mean Corpuscular Hemoglobin 25.6 L Mean Corpuscular Hemoglobin Concent 31.9 L Red Cell Distribution Width 13.1 Platelet Count 205 Mean Platelet Volume 10.7 H Neutrophils % 60.9 Lymphocytes % 29.3 Monocytes % 8.4 Eosinophils % 0.8 Basophils % 0.3 Nucleated Red Blood Cells % 0.0 Neutrophils # 4.4 Lymphocytes # 2.1 Monocytes # 0.6 Eosinophils # 0.1 Basophils # 0.0 Nucleated Red Blood Cells # 0.0 Sodium Level 141 Potassium Level 4.1 Chloride Level 105 Carbon Dioxide Level 31 Anion Gap 9 Blood Urea Nitrogen 18 Creatinine 0.91 Glucose Level 96 Calcium Level 8.9 Medications Medications Current Medications Metoprolol Tartrate (Lopressor) 25 mg BID PO Last administered on 11/09/16 08: 36; Admin Dose 25 MG; Start 11/05/16 at 09:00 Acetaminophen (Tylenol Tab) 650 mg Q4H PRN PO PAIN AND OR ELEVATED TEMP; Start 11/05/16 at 03:30 Aspirin (Aspirin) 325 mg DAILY PO Last administered on 11/09/16 08:36; Admin Dose 325 MG; Start 11/05/16 at 09:00 Atorvastatin Calcium (Lipitor) 10 mg HS PO Last administered on 11/08/16 20:58 ; Admin Dose 10 MG; Start 11/05/16 at 21:00 Nitroglycerin (Nitroglycerin (Sl Tab) 0.4 Mg) 1 tab Q5M PRN SL ANGINA; Start at 20:00 Acetaminophen (Tylenol Tab) 650 mg Q4H PRN PO NON-CARDIAC PAIN LEVEL (1-3); Start 11/08/16 at 10:00 Morphine Sulfate (morphine) 2 mg Q2H PRN IV FOR NON CARDIAC PAIN (4-10) Last administered on 11/08/16 14:33; Admin Dose 2 MG; Start 11/08/16 at 10:00 Al Hydrox/Mg Hydrox/Simethicone (Mag-Al Plus) 30 ml Q4H PRN PO GASTROINTESTINAL UPSET; Start 11/08/16 at 10:00 Ondansetron HCl (Zofran Inj) 4 mg Q4H PRN IV NAUSEA AND/OR VOMITING; Start 11/08 at 10:00 Isosorbide Dinitrate (Isordil) 10 mg TID PO Last administered on 6/9/17at 08:36 ; Admin Dose 10 MG; Start 11/08/16 at 13:00 CARMEN PINEDO Nov 09, 2016 13:07
[2016-11-09] MEDS ORDERED: ISOS30TA5 PO (14:09)
[2016-11-09] MEDS ORDERED: ATOR10TA65 PO (14:09)
[2016-11-09] MEDS ORDERED: ASPI-664 PO (14:09)
[2016-11-09] MEDS ORDERED: ALPR0.5T PO (14:09)
[2016-11-10] MEDS ORDERED: ISOSORBIDE MONONITRATE(SR)30 MG TAB PO SCH (09:00)
--- NOTE | 2016-11-11 23:50 | DS ---
DATE OF ADMISSION: 11/05/2016 DATE OF DISCHARGE: 11/09/2016 FINAL DIAGNOSES: 1. Chest pain, most likely secondary to microvascular coronary artery disease versus anxiety. Acut e coronary syndrome ruled out. 2. Hypercholesterolemia. 3. Anxiety. BRIEF HISTORY: The patient is a very pleasant 41-year-old gentleman, presented to the emergency [facility] with complaints of chest pain with pressure-like symptoms. There were no exacerbating or relievin g factors. The patient also stated that he experienced intermittent chest pain during the night, in the morning and it's been going on for the last 6 months, however got worse before patient presente d to emergency room. The patient was admitted for further evaluation and management. HOSPITAL COURSE: The patient was evaluated by Dr. Palumbo in cardiology consultation. The patient' s cardiac enzymes were negative x3. The patient also underwent 2D echocardiogram which revealed nor mal left ventricular function with ejection fraction of 50% to 55%. The patient underwent Lexiscan with notion of ischemia of anterior wall, and patient also underwent left chest heart catheterizatio n which revealed no significant obstructive coronary artery disease. The patient was started on nit rate during hospitalization. The patient also was getting metoprolol and aspirin. The patient's ch est pain resolved during his hospitalization, and patient was discharged home after clearance from C ardiology. CONDITION ON DISCHARGE: Hemodynamically stable. ACTIVITY: As patient tolerates. DISCHARGE MEDICATIONS: The patient is given prescription for: 1. Aspirin. 2. Atorvastatin. 3. Imdur. 4. Xanax p.r.n. for anxiety. The patient is instructed to follow up with Dr. Palumbo in 2 weeks and to follow up with primary car e physician in 2 weeks. Interdisciplinary plan of care was established for this patient. Plan of care was discussed with Dr Marianne Lares. Dictated By: AIXA CALVILLO DATA PROCESSING CLERK for TAMI LARES MD SR/NTS Conf#: [id number] DID#: [id number]
== END 2016-11-09 16:53 | disposition home or self-care (01) | DRG 287 ==
LOC: E/R 21:11 → MS4 11-05 00:25
PROVIDERS: ADMIT Internal Medicine; ATTEND Internal Medicine
PROC: B2011ZZ Plain Radiography of Multiple Coronary Arteries using Low Osmolar Contrast (ICD-10-PCS; 2016-11-08)
PROC: B2051ZZ Plain Radiography of Left Heart using Low Osmolar Contrast (ICD-10-PCS; 2016-11-08)
PROC: 4A023N7 Measurement of Cardiac Sampling and Pressure, Left Heart, Percutaneous Approach (ICD-10-PCS; principal; 2016-11-08 10:30)
DX: I25.119 Atherosclerotic heart disease of native coronary artery with unspecified angina pectoris (principal); I10 Essential (primary) hypertension; E87.6 Hypokalemia; R00.1 Bradycardia, unspecified; F41.9 Anxiety disorder, unspecified; E78.00 Pure hypercholesterolemia, unspecified; I34.0 Nonrheumatic mitral (valve) insufficiency
CPT/HCPCS: 36415; 71010; 78452; 80048; 80053; 80061; 83880; 84436; 84479; 84484; 85025; 85610; 85730; 93005; 93017; 93306; 93458; A9500; A9505; C1769; C1887; J1644; J2250; J2270; J2785; J3010; J7030; J7040; Q9967